=== PATIENT | female | born 1990 | race Caucasian/White ===

== ENCOUNTER → 2017-06-25 | Outpatient (CLI) | payer OTHER ==
[~2017-06-25] MED LIST: LRT5 PO; PRENTAB26 PO
--- NOTE | 2017-06-25 12:09 | DIAGNOSTIC IMAGING REPORT ---
MRI THE RIGHT KNEE NO CONTRAST CLINICAL HISTORY: Right knee pain COMPARISON STUDY: No previous studies for comparison. FINDINGS: Imaging was performed in the sagittal, coronal, and axial planes. There is ferromagnetic artifact secondary to intramedullary rodding of the femur. There are no areas of marrow replacement to indicate neoplasm. There is fragmentation of the anterior tibial tuberosity, likely chronic. The anterior and posterior cruciate ligaments appear intact. The patellar retinacular structures appear intact. There is lateral patellar tilt. The medial and lateral collateral ligaments appear intact. There is marrow edema within the right lateral femoral condyle consistent with a bone bruise. No meniscal tears are visualized. IMPRESSION: 1. Marrow edema within the right lateral femoral condyle consistent with a bone bruise 2. No evidence of cruciate or collateral ligament disruption 3. Mild lateral patellar tilt 4. No evidence of meniscal tear 5. Postsurgical changes involving the femur 6. Anterior tibial tuberosity fragmentation likely chronic 7. Small joint effusion Electronically signed by: Konstantin Da Silva M.D. 06/25/2017 12:08 PM Dictated Date/Time: 06/25/2017 12:03 PM
== END | disposition home or self-care (01) ==
LOC: C.MRI 10:49
PROVIDERS: ATTEND Internal Medicine
DX: M25.561 Pain in right knee (principal); M25.461 Effusion, right knee